=== PATIENT | male | born 1985 | race Caucasian/White ===

== ENCOUNTER 2025-06-08 12:52 | Outpatient (OUT) | payer OTHER, SELFPAY | END 2025-06-08 12:53 | disposition home or self-care (01) | LOC: PST 12:53 | PROVIDERS: PCP Family Medicine; Visit Provider Otolaryngology | DX: Z01.818 Encounter for other preprocedural examination (principal); K12.30 Oral mucositis (ulcerative), unspecified ==

== ENCOUNTER 2025-06-15 09:40 | Day surgery (SDC) | payer OTHER, SELFPAY ==
--- OUTSIDE RECORDS SUMMARY | 2024-12-05 12:13 | XMS_ITS ---
Author Organization [facility] in [place] Address [address] [place] [address] Care Team Providers Care Compressor Station Engineer Chief Name Role Phone Zurdo Amor MD Primary Care Provider Unavailab eduardo Anselmo Cali Unavailable [phone] REASON FOR VISIT Appointment Reschedule Encounters Encounter Location Date Provider Diagnosis Pulmonary Medicine [place] [address] [place] [address] 12/05/2024 Caliatul Shrestha Plan Of Treatment Next Appt Details Provider Name:Cali Briones, 01/02/2026 08:30:00 AM, [address] [place], [address], Progress Notes * Timi GARZA BDOB:1985 (39 yo M)Acc No.[id number]:12/05/2024 Patient: Sana MOOKMadiTimi :1985 A ge:39 Y S ex:Male Address:[address] [place] [address] , [place] [address] * true * Date: Generated for Julyi nehemiah/Radha/eTransmitting on: 0 06/15/2025 09:49 AM EDT
--- OUTSIDE RECORDS SUMMARY | 2024-12-21 04:30 | XMS_ITS ---
Author Organization [facility] in [place] Address [address] [place] [address] Care Team Providers Care Food Technologist Name Role Phone Zurdo Amor MD Primary Care Provider Unavailab Cali Lynn Unavailable [phone] REASON FOR VISIT 1YEAR-ASTHMA Encounters Encounter Location Date Provider Diagnosis Pulmonary Medicine [place] [address] [place] [address] 12/21/2024 Cali Briones Plan Of Treatment Next Appt Details Provider Name:Cali Briones, 01/02/2026 08:30:00 AM, [address] [place], [address], Progress Notes * Timi GARZA BDOB:1985 (39 yo M)Acc No.[id number]:12/21/2024 UNLOCKED PROGRESS NOTE Follow Up Patient: Sana RIOSTimi Provider: Golden Briones DO :1985 A ge:39 Y S ex:Male Date:12/21/2024 Address:[address] [place] [address] , [place], [id number] Pcp:Zurdo Amor MD Subjective: * Chief Complaints: * 1 . 1YEAR-ASTHMA. * Medical History: Objective: * Vitals: Assessment: Plan: * Treatment: * * Electronic signature of Airam Briones DO on 06/15/2025 at 09:49 AM EDT Sign off status: Pending Visit Status: R /S By O/P (Rescheduled by Office/Provider) * Provider: Golden Briones DO Date: 0 12/21/2024 Generated for Kavon cerna/Radha/Yasmin on: 0 06/15/2025 09:49 AM EDT
--- OUTSIDE RECORDS SUMMARY | 2025-01-04 04:30 | XMS_ITS ---
Author Organization [facility] in [place] Address [address] [place] [address] Care Team Providers Care Erp Technical Lead Name Role Phone Zurdo Amor MD Primary Care Provider Unavailab clark Cali Briones Unavailable [phone] Allergies Allergen (clinical drug ingredient) Drug/Non Drug Allergy documented on EMR Reaction Allergy Type Onset Date Status sulfamethoxazole / trimethoprim Bactrim rash Drug Allergy Active acetaminophen / butalbital / caffeine Fioricet rash Drug Allergy Active Medicinal cephalosporin and acting as antibacterial agent (FN) Cephalosporins rash Drug Allergy A ctive ciprofloxacin Ciprofloxacin rash Drug Allergy Active doxycycline Doxycycline rash Drug Allergy Act nicole Penicillin rash Drug Allergy Active REASON FOR VISIT 1YEAR-ASTHMA Medications Medication SIG (Take, Route, Fr equency, Duration) Notes Start Date End Date Status Omeprazole 10 MG 1 capsule 30 minutes before morning meal Orally Once a day Active Shira Allergy 180 MG 1 tablet Swallow whole with water; do not take with fruit juices. Orally Once a day Active Airsupra 90-80 MCG/ACT 2 puffs as needed for SOB or wheezing Inhalation Q4H for 30 days Rinse after use if able 01/04/2025 Active Social History Tobacco Use: Social History Observation Description Date Details (start date - stop date) Never Smoker NA - NA Tobacco Control (Standard) Question Answer Notes Tobacco use: Nonsmoker Vital Signs Temperature 96.4 degrees Fahrenheit 01/04/20 25 Blood pressure systolic 142 mm Hg 01/04/20 25 Blood pressure diastolic 90 mm Hg 025 Heart Rate 92 /min 01/04/2025 Respiratory Rate 18 /min 01/04/2025 Height 69 in 01/04/2025 Weight 218.2 lbs 01/04/2025 BMI 32.22 kg/m2 01/04/2025 Oximetry 96 % 01/04/2025 Encounters Encounter Location Date Provider Diagnosis Pulmonary Medicine [place] [address] [place] [address] 01/04/2025 Cali Briones Mild intermittent asthma J45.20 and Obesity, unspecified E66.9 Assessments Encounter Date Diagnosis (ICD Code) Assessment Notes Treatment Notes Treatment Clinical Notes Section Notes 01/04/2025 Mild intermittent asthma (ICD-10 - J45.20) Patient stopped Singulair ~6 months ago d/t insurance change and did not get it refilled at a different mail order pharmacy. He has noticed a slight decline in his symptom control - I note some mild wheezes on examination today. He reports rare albuterol use. Discussed options with patient: -Remain off Singulair -Restart Singulair -Begin AirSupra PRN After discussing pros and cons of each option, he voiced he would like to try AirSupra. Discussed it takes the place of albuterol, but used exactly the same. If he notes he is using it on a daily basis, or begins having nighttime symptoms, then those are clues he needs to restart Singulair at a minimum. I suggested he rinse after AirSupra if possible. If he wishes to restart Singulair, he can contact the office and his mail order pharmacy of choice and we can send in an Rx. Otherwise, F/U 1 year, or sooner PRN. 01/04/2025 Obesity, unspecified (ICD-10 - E66.9) Patient's weight is inducing a restrictive pulmonary physiology. Weight loss indicated: Decrease calories, increase activity. Plan Of Treatment Medication Medication Name Sig Start Date Stop Date Notes Airsupra 90-80 MCG/ACT 2 puffs as needed for SOB or wheezing Inhalation Q4H for 30 days 01/04/2025 Montelukast Sodium 10 MG 1 tablet Oral QD Albuterol Sulfate HFA 108 (9 0 Base) MCG/ACT 2 puffs as needed for SOB Inhalation Q4H Treatment Notes Assessment Notes Mild intermittent asthma Patient stopped Singulair ~6 months ago d/t insurance change and did not get it refilled at a different mail order pharmacy. He has noticed a slight decline in his symptom control - I note some mild wheezes on examination today. He reports rare albuterol use. Discussed options with patient: -Remain off Singulair -Restart Singulair -Begin AirSupra PRN After discussing pros and cons of each option, he voiced he would like to try AirSupra. Discussed it takes the place of albuterol, but used exactly the same. If he notes he is using it on a daily basis, or begins having nighttime symptoms, then those are clues he needs to restart Singulair at a minimum. I suggested he rinse after AirSupra if possible. If he wishes to restart Singulair, he can contact the office and his mail order pharmacy of choice and we can send in an Rx. Otherwise, F/U 1 year, or sooner PRN. Obesity, unspecified Patient's weight is inducing a restrictive pulmonary physiology. Weight loss indicated: Decrease calories, increase activity. Next Appt Details Follow Up: 1 Year, Reason: A sthma Provider Name:Cali Briones, 01/02/2026 08:30:00 AM, [address] [place], [address], Progress Notes * Timi GARZA BDOB:1985 (39 yo M)Acc No.[id number]:01/04/2025 UNLOCKED PROGRESS NOTE Follow Up Patient: Timi ALEXANDER Provider: Golden Briones DO :1985 A ge:39 Y S ex:Male Date:01/04/2025 Address:[address] [place], [place] [id number] Pcp:Zurdo Amor MD Check In:08:25 AM ESTCheck O ut:09:04 AM EST Subjective: * Chief Complaints: * 1 . 1YEAR-ASTHMA. * HPI: G eneral: Patient states his insurance changed ~6 months ago. He became frustrated with it and stopped Singulair. He has noticed a slight worsening in his control, but it is not severe. He uses albuterol typically only when ill. No reported exacerbations over the past year. MA Intake Comments:. Patient presents for a follow up for Asthma. [facility]. Patient denies any complaints or concerns with his breathing today. Patient denies any ER Visits or Hospitalizations since his last visit. * ROS: G eneral/Constitutional: Fever or sweats d enies. C hange of appetite d enies. C hills d enies. W eight Change d enies. H EENT: Dry mouth d enies. S ore throat d enies. O ral Ulcers d enies. P ost Nasal Drip D enies. C ongestion D enies. H oarseness?Denies. C ardiovascular: Tachycardia d enies. C hest pain d enies. P alpitations d enies. R espiratory: Chest tightness d enies. P leurisy D enies. D yspnea t ypically only when ill. C ough d enies. H emoptysis d enies. W heezing d enies. G astrointestinal: Acid Reflux/GERD/Heartburn a dmits. D ysphagia d enies. M usculoskeletal: Arthralgias/joint pain D enies. S kin: Easy bruising d enies. R tonny d enies. ? N eurologic: Seizures d enies. T remor d enies. H ematology: Abnormal Bleeding d enies. P sychiatric: Anxiety d enies. * Medical History: M ild intermittent asthma, Allergic rhinitis due to pollen, GERD (gastroesophageal reflux disease). * Surgical History: t onsillectomy and adenoidectomy , vasectomy/reversal , bone growth excision- forehead . * Hospitalization/Major Diagno stic Procedure: D enies Past Hospitalization. * Family History: M aternal Grandmother: breast cancer. M aternal aunt: Lung cancer. F ather: diagnosed with Unspecified heart disease. P aternal Grandfather: diagnosed with Unspecified heart disease. Paternal Grandmother: diagnosed with Diabetes mellitus without mention of complication, type II or unspecified type, not stated as uncontrolled. 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 D rugs/Alcohol: D rugs H ave you used drugs other than those for medical reasons in the past 12 months? N o D oes the Patient have a History of Drug Abuse in the Past? N o Caffeine I ntake: 3 -4 cups per day Coffee & Energy Drinks Do you drink alcohol?: Yes, Socially. Do you smoke marijuana?: Denies. * Medications: T aking Albuterol Sulfate HFA 108 (90 Base) MCG/ACT Aerosol Solution 2 puffs as needed for SOB Inhalation Q4H , Taking Shira Allergy(Fexofenadine HCl) 180 MG Tablet 1 tablet Swallow whole with water; do not take with fruit juices. Orally Once a day , Taking Omeprazole 10 MG Capsule Delayed Release 1 capsule 30 minutes before morning meal Orally Once a day , Not-Taking/PRN Montelukast Sodium 10 MG Tablet 1 tablet Oral QD , Discontinued Claritin(Loratadine) 10 MG Tablet 1 tablet Orally Once a day , Medication List reviewed and reconciled with the patient * Allergies: C ephalosporins: rash - Allergy, Bactrim: rash - Allergy, Penicillin: rash - Allergy, Ciprofloxacin: rash - Allergy, Fioricet: rash - Allergy, Doxycycline: rash - Allergy. Objective: * Vitals: W t:218.2lbs, Ht: 69 in, BP:sittin/90mm Hg, Temp:Forehead:96.4F, HR:92/min, RR:18/min, BMI:32.22Index, Oxygen sat %:Room Air:96%, Ht-cm: 175.26 cm, Wt-k.97 kg. * Examination: E xam: GENERAL APPEARANCE: A ppears stated age. Skin N ormal. Mouth P ink and moist. Oropharynx M allampati Class II. Trachea M idline. Chest N ormal. Respiratory Normal M ovements, E ffort N ormal. Auscultation F aint expiratory wheeze with forced exhalation. Cardiac R egular rate and rhythm. Gastrointestinal N ormal. Vascular N o edema. Musculoskeletal N ormal posture. Neurological F ocal, intact. Psychiatric A lert and oriented x3. Mentation/Cognition N ormal. Assessment: * Assessment: 1. M ild intermittent asthma - J45.20 (Primary) 2 . O besity, unspecified - E66.9 Plan: * Treatment: 2. O besity, unspecified Notes: Patient's weight is inducing a restrictive pulmonary physiology. Weight loss indicated: Decrease calories, increase activity. * Preventive Medicine: COVID Vaccination: H as patient had COVID Vaccination? COVID Vaccination N o Patient Declined Immunization Status: P neumovacc P t Refused. I nfluenza P t Refused. B oostrix 0 06/09/2020. Screenings/Counseling: F ALL RISK SCREENING Fall Risk Assessment: N o falls in the past year Are you afraid of falling? N o T OBACCO ACTION PLAN Exclusion: M edical Reason Non Smoker Type of Medical Reason: N ot indicated F FELIPE EXCLUSION Reason: P atient Reason refused/declined Type of Patient Reason: D rug declined by patient B WI ACTION PLAN Above Normal BMI Follow-up D ietary management education, guidance, and counseling * Follow Up: 1 Year (Reason: Asthma) * * Electronic signature of Airam Briones DO on 06/15/2025 at 09:50 AM EDT Sign off status: Pending Visit Status: C HK (Check Out) * Provider: Golden Briones DO Date: 01/04/2025 Generated for Kavon cerna/Radha/Joniitting on: 0 06/15/2025 09:50 AM EDT History and Physical Notes * HPI (History of Present Illness) Category Sub-Category Detail Notes Category Not es General Patient present s for a follow up for Asthma. Patient has been out of [facility] due to Pharmacy changes. Patient denies any complaints or concerns with his breathing today. Patient denies any ER Visits or Hospitalizations since his last visit. Examination Category Sub-Category Detail Notes Category Not es Exam GENERAL APPEARANCE: Appears stated age Skin Normal Mouth [place] and moist Trachea Midline Chest Normal Respiratory Normal Movements, Ef fort Normal Auscultation Faint expiratory whe ines with forced exhalation Cardiac Regular rate and rhy thm Gastrointestinal Normal Vascular No edema Musculoskeletal Normal posture Neurological Focal, intact Psychiatric Alert and oriented x 3 Mentation/Cognition Normal Oropharynx Mallampati Class II
--- OUTSIDE RECORDS SUMMARY | 2025-05-09 10:50 | XMS_ITS | Encounter Summary ---
Author Organization [facility] Address [address] [place] [address] Care Team Providers Care Chain Carrier Name Role Phone Marta Carvalho MD Primary Care Provider [phone] Reason for Visit * Reason Comments lip mass Encounter Details Date Type Department Care Team (Late st Contact Info) Description 05/09/2025 10:50 AM EDT Office Visit [facility] [address] [place] [address] Tori Feng MD [address] [place] [address] Mucocele of lower lip (Primary Dx) Social History Tobacco Use Types Packs/Day Years Used Date Smoking Tobacco: Never Smokeless Tobacco: Never Alcohol Use Standard Drinks/Week Comments Yes 0 (1 standard drink = 0.6 oz pur e alcohol) Occ PHQ-2 Answer Date Recorded Patient Health Questionnaire-2 Score 0 12/14/2023 Sex and Gender Information Value Date Recorded Sex Assigned at Not on file Legal Sex Male 7:29 PM EDT Gender Identity Not on file Sexual Orientation Not on file documented as of this encounter Last Filed Vital Signs Vital Sign Reading Time Taken Comments Blood Pressure 84/76 05/09/2025 10:48 AM EDT Pulse 94 05/09/2025 10:48 AM EDT Temperature - - Respiratory Rate - - Oxygen Saturation - - Inhaled Oxygen Concentration - - Weight 98.9 kg (218 lb) 05/09/2025 10:48 AM EDT Height 175.3 cm (5' 9 ) 05/09/2025 10:48 AM EDT Body Mass Index 32.19 05/09/2025 10:48 AM EDT documented in this encounter Progress Notes * Tori Feng MD - 05/09/2025 10:50 AM EDT Subjective Patient ID: Timi Garza is a 39 y.o. male who presents for lip mass Pt reports a few month h/o submucosal nodule in RT lower lip. No pain, bleeding, change in size. No known lip trauma Review of Systems All other systems reviewed and are negative. Family History Problem Relation Name Age of Onset Hypertension Mother Hypertension Father Hyperlipidemia Father Active Ambulatory Problems Diagnosis Date Noted Mild intermittent asthma without complication (HCC) 12/14/2023 Chronic depressive disorder 12/14/2023 Obesity (BMI 30-39.9) 12/14/2023 Seasonal allergic rhinitis due to pollen 12/14/2023 Annual physical exam 12/14/2023 Gastroesophageal reflux disease without esophagitis 12/14/2023 Acute bronchitis 05/05/2025 Acute right otitis media 05/05/2025 Acute streptococcal pharyngitis 05/05/2025 Contact with or exposure to viral disease 05/05/2025 COVID 05/05/2025 Lesion of lip 05/05/2025 Sore throat 05/05/2025 Viral URI 05/05/2025 Resolved Ambulatory Problems Diagnosis Date Noted No Resolved Ambulatory Problems Past Medical History: Diagnosis Date Chronic depression Herpes labialis Mild intermittent asthma (HCC) Overweight Past Surgical History: Procedure Laterality Date ADENOIDECTOMY OTHER SURGICAL HISTORY Bone growth removed from forehead TONSILLECTOMY VASECTOMY VASECTOMY REVERSAL Allergies Allergen Reactions Doxycycline Hives Bactrim [Sulfamethoxazole-Trimethoprim] Rash Cephalosporins Rash Ciprofloxacin Rash Fioricet [Pxjbtjelhg-Ppko-Tkrvjbui] Rash Penicillins Rash Current Outpatient Medications on File Prior to Visit Medication Sig Dispense Refill albuterol HFA 90 mcg/act inhaler Inhale 2 puffs every 4 (four) hours if needed for wheezing famotidine (Pepcid) 20 MG tablet Take 20 mg by mouth Daily fexofenadine (Shira) 180 MG tablet Take 180 mg by mouth Daily Multiple Vitamins-Minerals (MULTIVITAMIN & MINERAL PO) 1 tablet [DISCONTINUED] montelukast (Singulair) 10 MG tablet Take 10 mg by mouth 1 (one) time each day No current facility-administered medications on file prior to visit. Objective Last Recorded Vitals Vitals: 05/09/25 1048 BP: 84/76 Pulse: 94 ENT Physical Exam Constitutional Appearance: patient appears well-developed and well-nourished, Head and Face Appearance: head appears normal and face appears atraumatic; Ear Ear comments: Francisco ears normal Nose External Nose: nares patent bilaterally; external nose normal; Internal Nose: nasal mucosa normal; Oral Cavity/Oropharynx Lips: normal; Teeth: normal; Gums: gingiva normal; Tongue: normal; Oral mucosa: normal; Hard palate: normal; OC/OP comments: 5mm RT lower lip mucocele Neck Neck: neck normal; neck palpation normal; Thyroid: thyroid normal; Respiratory Inspection: breathing unlabored; normal breathing rate; Auscultation: breath sounds are clear; Cardiovascular Inspection: extremities are warm and well perfused; no peripheral edema present; Auscultation: regular rate and rhythm; Assessment/Plan Diagnoses and all orders for this visit: Mucocele of lower lip Plan r/o RT lower lip mucocele under local Addendum - Pt contacted so assess sx. He notes the mucocele is interfering with eating and drinking * Angela Godfrey MA - 05/09/2025 10:50 AM EDT Patient state it is hard to eat and drink but mostly eating is hard. * Angela Godfrey MA - 05/09/2025 10:50 AM EDT Subjective Patient ID: Timi Garza is a 39 y.o. male who presents for lip mass HPI Review of Systems Objective ENT Physical Exam Assessment/Plan documented in this encounter Plan of Treatment Not on file documented as of this encounter Visit Diagnoses Diagnosis Mucocele of lower lip- Primary Other and unspecified diseases of the oral soft tissues documented in this encounter Care Teams Chain Carrier Relationship Specialty Start Date End Date Marta Carvalho MD [address] [place] [address] PCP - General Family Medicine 05/09/25 documented as of this encounter
--- NOTE | 2025-06-15 | OP_ITS ---
OPERATION DATE: 06/15/2025 SURGEON: Tori Feng M.D. PREOPERATIVE DIAGNOSIS: Right lower lip/oral vestibule mucocele. POSTOPERATIVE DIAGNOSIS: Right lower lip/oral vestibule mucocele. PROCEDURE: Removal of right oral vestibule lesion with layered closure. ANESTHESIA: Lidocaine 1% with 1:100,000 epinephrine. FINDINGS: 12 mm right lower lip mucocele. INDICATIONS: This gentleman presented with a fairly large mucocele of the right lower lip, which was causing difficulty when eating, due to being bitten. PROCEDURE: Patient identified in the holding area and taken back to the OR where he was placed in the supine position. The lower lip was grasped and incision marked out. Lidocaine 1% with 1:100,000 epinephrine was infiltrated around the incision in the lesion. After waiting adequate time for hemostasis and anesthesia, the lip was again grasped. It was prepped with Betadine, and an elliptical incision made over the mucocele. Dissection was carried sharply around the mucocele, and it was removed in its entirety. There was limited bleeding controlled with pressure and the wound was then closed with interrupted 5-0 Vicryl deep sutures, and then interrupted 5-0 Vicryl vertical mattress sutures. Patient was then discharged home in good condition. IVY
--- OUTSIDE RECORDS SUMMARY | 2025-06-15 09:49 | XMS_ITS | Clinical Summary ---
Author Organization [facility] Address [address] [place] [address] Care Team Providers Care Supervisor [place] Name Role Phone Unavailable Primary Care Provider Unavailabl e Social History Tobacco Use Types Packs/Day Years Used Date Smoking Tobacco: Never Assessed Sex and Gender Information Value Date Recorded Sex Assigned at Not on file Legal Sex Male 9:21 PM EDT Gender Identity Not on file Sexual Orientation Not on file Plan of Treatment Not on file
--- OUTSIDE RECORDS SUMMARY | 2025-06-15 09:49 | XMS_ITS | Clinical Summary ---
Author Organization [facility] Address [id number] [place] [address] Care Team Providers Care Principal Consultant Name Role Phone Unavailable Primary Care Provider Unavailabl e Social History Tobacco Use Types Packs/Day Years Used Date Smoking Tobacco: Never Assessed Childcare Answer Date Recorded Childcare Unknown 04/27/2019 Employment Answer Date Recorded Employment Unknown 04/27/2019 Sex and Gender Information Value Date Recorded Sex Assigned at Not on file Legal Sex Male 11:37 AM EDT Gender Identity Not on file Sexual Orientation Not on file Plan of Treatment Not on file Medical Devices Not on file
--- OUTSIDE RECORDS SUMMARY | 2025-06-15 09:50 | XMS_ITS | Patient Health Record ---
Author Organization [facility] [place] Address [address] [place] [address] Care Team Providers Care Block Sawyer Name Role Phone Zurdo Amor MD Primary Care Provider Unavailab eduardo Cali Briones Unavailable [phone] Allergies Allergen (clinical drug ingredient) Drug/Non Drug [...] Act nicole Penicillin rash Drug Allergy Active Reason For Referral No Information Medications Medication SIG (Take, Route, Fr equency, [...] Rinse after use if able 01/04/2025 Active Immunizations Vaccine Route Administration Date Status Comme nts DTP - historic Unknown 03/31/2022 Administered Flu, Afluria (5350-7401) (55 387) 6-35 mos, [id number]-soai Unknown 11/06/2020 Administered Tdap Unknown 06/09/2020 Administered Social History Tobacco Use: Social History Observation Description Date Details (start date - stop date) Never Smoker NA - NA Tobacco Control (Standard) Question Answer Notes Tobacco use: Nonsmoker Problems Problem Type SNOMED Code ICD Code Onset Dates Problem Status W/U Status Risk Notes Problem [id number] Obesity, unspecified (E66.9) Active confirmed Problem Mild intermittent asthma (J45.20) Active confirmed Vital Signs Heart Rate 92 /min 01/04/2025 Temperature 96.4 degrees Fahrenheit 01/04/2025 Respiratory Rate 18 /min 01/04/2025 Blood pressure diastolic 90 mm Hg 01/04/2025 Oximetry 96 % 01/04/2025 Height 69 in 01/04/2025 Blood pressure systolic 142 mm Hg 01/04/2025 Weight 218.2 lbs 01/04/2025 BMI 32.22 kg/m2 01/04/2025 Encounters Encounter Location Date Provider Diagnosis [facility] [address] [place] [address] 01/04/2025 [facility] Mild intermittent asthma J45.20 and Obesity, unspecified E66.9 [facility] [address] [place] [address] 10/31/2024 [facility] [address] [place] [address] 12/05/2024 [facility] Assessments Encounter Date Diagnosis (ICD Code) Assessment [...] Decrease calories, increase activity. Plan Of Treatment Next Appt Details Provider Name:Cali Briones, 01/02/2026 08:30:00 AM, [address] [place], [address], Insurance Providers Payer Name Payer Address Payer Phone Subscriber Number Group Number Insured Name Patient Relationship to Insured Coverage Start Date Coverage End Date O [employer] P[employer] [address] [address] [place] [phone] [id number] Timi Garza Self - patient is the insured Medical (General) History Medical History History ICD Code Mild intermittent asthma J45.20 Allergic rhinitis due to pollen J30.1 GERD (gastroesophageal reflux disease) K 21.9 Surgical History Surgery Date(Month/Year) tonsillectomy and adenoidectomy vasectomy/reversal bone growth excision-forehead
--- OUTSIDE RECORDS SUMMARY | 2025-06-15 09:50 | XMS_ITS | Clinical Summary ---
Author Organization [facility] Address [address] [place] [address] Care Team Providers Care Television Operator Name Role Phone Marta Carvalho MD Primary Care Provider [phone] Allergies Active Allergy Reactions Criticality Noted Date Comments Sulfamethoxazole-Trimethoprim Rash Low 2022 Cephalosporins Rash Low 10/21/2023 Ciprofloxacin Rash Low 10/21/2023 Doxycycline Hives 09/24/2024 Bkfllfcrru-Staw-Kwahzzke Rash Low 10/21/2023 Penicillins Rash Low 10/21/2023 Medications albuterol HFA 90 mcg/act inhaler Inhale 2 puffs every 4 (four) hours if needed for wheezing Active fexofenadine (Shira) 180 MG tablet Take 180 mg by mouth Daily Active famotidine (Pepcid) 20 MG tablet Take 20 mg by mouth Daily Active Multiple Vitamins-Minera ls (MULTIVITAMIN & MINERAL PO) 1 tablet 04/21/2025 Active Active Problems Problem Noted Date Diagnosed Date Acute bronchitis 05/05/2025 Acute right otitis media 05/05/2025 Acute streptococcal pharyngitis 05/05/2025 Contact with or exposure to viral disease 2024 COVID 05/05/2025 Lesion of lip 05/05/2025 Sore throat 05/05/2025 Viral URI 05/05/2025 Mild intermittent asthma without complication Chronic depressive disorder 12/14/2023 Obesity (BMI 30-39.9) 12/14/2023 Seasonal allergic rhinitis due to pollen 024 Annual physical exam 12/14/2023 Assessment & Plan (12/14/2023 8:46 AM EST): Due for labs. Discussed proper diet and regular aerobic exercise. Need aerobic exercise 5-6 days a week for 30 minutes at a time. Smaller portions and limit total calories. Colonoscopy after age 45. Tetanus every 10 years. Advised not to smoke. Discussed daily Aspirin therapy. Gastroesophageal reflux disease without esophagi tis 12/14/2023 Assessment & Plan (12/14/2023 8:47 AM EST): Recently with increased symptoms but controlled with pepcid and continue. Encounters Date Type Department Care Team Description 06/01/2025 Telephone [facility] [address] [place] [address] Angela Godfrey MA information needed 05/09/2025 10:50 AM EDT Office Visit [facility] [address] [place] [address] Tori Feng MD Mucocele of lower lip (Primary Dx) 05/09/2025 Bamboo flowsheet [facility] [address] [place] [address] Tori Feng MD 05/09/2025 Travel from Last 3 Months Family History Medical History Relation Name Comments Hyperlipidemia Father Hypertension Father Hypertension Mother Relation Name Status Comments Father Alive Mother Alive Social History Tobacco Use Types Packs/Day Years Used Date Smoking Tobacco: Never Smokeless Tobacco: Never Tobacco Cessation:Counseling Given: Not Answered Alcohol Use Standard Drinks/Week Comments Yes 0 (1 standard drink = 0.6 oz pur e alcohol) Occ PHQ-2 Answer Date Recorded Patient Health Questionnaire-2 Score 0 12/14/2023 Sex and Gender Information Value Date Recorded Sex Assigned at Not on file Legal Sex Male 7:29 PM EDT Gender Identity Not on file Sexual Orientation Not on file Last Filed Vital Signs Vital Sign Reading Time Taken Comments Blood Pressure 84/76 05/09/2025 10:48 AM EDT Pulse 94 05/09/2025 10:48 AM EDT Temperature 36.6 C (97.8 F) 12/14/2023 8:20 AM EST Respiratory Rate - - Oxygen Saturation 96% 12/14/2023 8:20 AM EST Inhaled Oxygen Concentration - - Weight 98.9 kg (218 lb) 05/09/2025 10:48 AM EDT Height 175.3 cm (5' 9 ) 05/09/2025 10:48 AM EDT Body Mass Index 32.19 05/09/2025 10:48 AM EDT Plan of Treatment Not on file Insurance [employer] Care Teams Television Operator Relationship Specialty Start Date End Date Marta Carvalho MD [address] [place] [address] PCP - General Family Medicine 05/09/25
--- OUTSIDE RECORDS SUMMARY | 2025-06-15 09:50 | XMS_ITS | Encounter Summary ---
Author Organization [facility] Address [address] [place] [address] Care Team Providers Care Willow Analyst Name Role Phone Marta Carvalho MD Primary Care Provider [phone] Reason for Visit * Reason Onset Date Comments information needed 06/01/2025 Encounter Details Date Type Department Care Team (Late st Contact Info) Description 06/01/2025 Telephone [facility] [address] [place] [address] Angela Godfrey MA information needed Social History Tobacco Use Types Packs/Day Years [...] on file documented as of this encounter Miscellaneous Notes * Telephone Encounter - Tori Feng MD - 06/05/2025 3:29 PM EDT Add to note * Telephone Encounter - Angela Godfrey MA - 06/05/2025 2:35 PM EDT Patient said it does cause trouble eatting and a little trouble drinking but not as much as eating can we add this to his office note? * Telephone Encounter - Tori Feng MD - 06/02/2025 8:06 AM EDT Call pt and ask * Telephone Encounter - Angela Godfrey MA - 06/01/2025 11:23 AM EDT Violeta in the precert department got a voicemail needing more information on patient for surgery hereis what the message says is needed Anita Cortez, this is [facility], I am calling Timi Garza. Date of [id number], the request for the lesion on the lip removal. Need to see if I can get some kind of note stating if that is causing him any trouble when he eats or drinks if he is having any drainage Or inflammation anykind of infection. I know it says he did not have pain. But if it is causing trouble eating or swallowing anything like that, if you can fact that over to me, my fact summer is [phone] [id number]. And then I can finish them up. If not, I am going to have to send it out to a medical review and I will get in touch with you for information for that. Thank you, ma'am. documented in this encounter Plan of Treatment Not on file documented as of this encounter Visit Diagnoses Not on filedocumented in this encounter Care Teams Willow Analyst Relationship Specialty Start Date End Date Marta Carvalho MD [address] [place] [id number] PCP - General Family Medicine 05/09/25 documented as of this encounter
[2025-06-15 09:53] VITALS: BP 126/85; PULSE 73; TEMP 36.2; O2SAT 98
[2025-06-15 10:45] VITALS: BP 138/88; BP 145/87; PULSE 82; PULSE 92; O2SAT 97
[2025-06-15] MEDS: BACITRACIN OINTMENT 28.4 GM TUBE 1 APPLIC TOPICAL (10:52)
[2025-06-15] MEDS: LIDOCAINE HCL 1%-EPINEPHRINE 1:100,000 20 ML MDV 3 ML INJ (10:53)
== END 2025-06-15 11:09 | disposition home or self-care (01) ==
PROVIDERS: PCP Family Medicine; Visit Provider Otolaryngology
PROC: (CPT 40812; principal; 2025-06-15 10:30)
DX: K13.0 Diseases of lips (principal)
CPT/HCPCS: 40812; 88304